=== PATIENT | female | born 1965 | race Caucasian/White ===

== ENCOUNTER 2020-01-15 09:08 | Outpatient (CLI) | payer OTHER, SELFPAY ==
--- NOTE | 2020-01-15 09:21 | MM_ITS ---
WS: [id number] SCREENING DIGITAL MAMMOGRAM WITH CAD HISTORY: SCREENING COMPARISON: 11/08/2018, 12/06/2018, 10/12/2017 and 07/08/2014 Bilateral CC and MLO views submitted. Computer aided detection analyzed. Breast composition: There are scattered areas of fibroglandular density. There is mild progression of the asymmetry in the 12:00 region of the RIGHT breast. Additional imaging was also obtained on the p rior screening mammogram of 11/08/2018. The changes are slightly more obvious and there is a new asymm etry. Recommend additional imaging LEFT breast is negative. MM/[place] [id number] IMPRESSION: BI-RADS: 0-Incomplete: Need additional imaging evaluation FOLLOW UP: Need Additional Imaging RIGHT breast: Spot compression views (CC and MLO). True ML. Ultrasound to follo w if abnormality persists.
== END 2020-01-15 09:09 | disposition home or self-care (01) ==
LOC: RADSHAW 09:13
PROVIDERS: PCP Nurse Practitioner; Visit Provider Nurse Practitioner
DX: Z12.31 Encounter for screening mammogram for malignant neoplasm of breast (principal); N64.89 Other specified disorders of breast
CPT/HCPCS: 77067

== ENCOUNTER 2020-02-13 10:23 | Outpatient (CLI) | payer OTHER, SELFPAY ==
--- NOTE | 2020-02-13 10:33 | MM_ITS ---
WS: [id number] Right breast diagnostic digital mammogram, 02/13/2020 Clinical Data: ABNORMAL MAMMOGRAM Comparison: 01/15/2020, 12/06/2018, 11/08/2018, 10/12/2017, 07/08/2014, 01/02/2014, 12/24/2013, 12/12/2012, 08/27/2011. Findings: Compression views and ML view of the right breast showed only normal breast tissue. The asymmetry in the 12:00 region of the right breast showed only normal breast tissue. No spiculated masses or cluste red calcifications are seen. There are no secondary signs of carcinoma. MM/[place] [id number] Impression: 1. Negative for right breast abnormality. 2. Recommend right breast ultrasound. BIRADS: 2-Benign FOLLOW UP: See Report The CAD inventory checker was used.
--- NOTE | 2020-02-13 10:33 | US_ITS ---
WS: [id number] Right breast ultrasound, 02/13/2020 Clinical Data: ABNORMAL MAMMOGRAM Comparison: Right breast ultrasound, 01/02/2014. Findings: Only normal breast tissue could be seen at the 11 to 1:00 position on the right breast. There were no cysts or masses. US/US breast RT limited* [id number] Impression: 1. Normal right breast ultrasound. 2. Recommend annual screening mammograms. BIRADS: 2-Benign FOLLOW UP: 1 Year Follow-up
== END 2020-02-13 10:24 | disposition home or self-care (01) ==
LOC: RADSHAW 10:28
PROVIDERS: PCP Nurse Practitioner; Visit Provider Nurse Practitioner
DX: R92.8 Other abnormal and inconclusive findings on diagnostic imaging of breast (principal)
CPT/HCPCS: 76642; 77065

== ENCOUNTER 2020-06-17 08:22 | Outpatient (CLI) | payer OTHER, SELFPAY ==
--- NOTE | 2020-06-17 08:30 | MR_ITS ---
WS: [id number] MRI LUMBAR SPINE NONCONTRAST TECHNIQUE: Sagittal T1, T2 and STIR imaging. Axial T1 and T2 imaging. CLINICAL INFORMATION: BACK PAIN W/RADICULOPATHY COMPARISON: None. FINDINGS: Small central protrusion the mid thoracic spine at T7-T8 with slight contact of the thoracic cord and mild central canal stenosis. Mild lumbar curve. No acute compression. Mild disc bulging L4-5. L1-L2: Normal. L2-L3: No significant disc bulging. Mild facet arthropathy. Spinal canal and foramen are patent. L3-L4: No significant disc bulging. Mild facet arthropathy. Spinal canal and foramen are patent. L4-L5: Slight anterolisthesis L4 on L5. Shallow annular bulging with slight effacement of the ventral thecal sac. Mild central canal stenosis. Slight impingement traversing L5 nerve roots right greater than left. Small annular fissure. Mild bilateral foraminal narrowing. L5-S1: Mild annular bulging. Tiny annular fissure. Mild right and no significant left foraminal narro wing. Mild to moderate facet arthropathy. Visualized pelvic bony structures: Normal. Paravertebral soft tissues: Normal. MR/MR lumbar spine wo con* [id number] IMPRESSION: 1. Small central protrusion the mid thoracic spine at T7-T8 with slight contac t of the thoracic cord and mild central canal stenosis. 2. Shallow annular bulging L4-5 with a small annular fissure and mild central canal stenosis. Slight impingement traversing L5 nerve roots. Mild bilateral fo raminal narrowing at this level. 3. Tiny right eccentric annular fissure L5-S1 with mild right L5-S1 foraminal narrowing. 4. Mild to moderate facet arthropathy L4-L5 and L5-S1.
== END 2020-06-17 08:23 | disposition home or self-care (01) ==
LOC: RADSHAW 08:23
PROVIDERS: PCP Nurse Practitioner; Visit Provider Surgery
DX: M54.16 Radiculopathy, lumbar region (principal); M47.816 Spondylosis without myelopathy or radiculopathy, lumbar region; M47.817 Spondylosis without myelopathy or radiculopathy, lumbosacral region; M51.24 Other intervertebral disc displacement, thoracic region
CPT/HCPCS: 72148

== ENCOUNTER 2020-08-25 09:19 | Outpatient (CLI) | payer OTHER, SELFPAY ==
--- NOTE | 2020-08-25 09:31 | XR_ITS ---
WS: [id number] Lumbar spine with flexion, extension, and neutral lateral, 08/25/2020 Clinical Data: LOW BACK PAIN Comparison: None. Findings: No compression fractures or subluxation is seen. No disc space narrowing is seen. No limitation of motion or subluxation is seen. There is minimal anterior spurring of the vertebral bodies L3-L5. XR/XR lumbar spine f/e only [id number] Impression: 1. Minimal anterior spurring at L3-L5. 2. Negative for limitation of motion or subluxation on flexion or extension.
== END 2020-08-25 09:20 | disposition home or self-care (01) ==
LOC: RAD 09:27
PROVIDERS: PCP Nurse Practitioner; Visit Provider Nurse Practitioner
DX: M54.5 Low back pain (principal)
CPT/HCPCS: 72120

== ENCOUNTER 2021-03-24 12:36 | Outpatient (CLI) | payer OTHER, SELFPAY ==
--- NOTE | 2021-03-24 13:10 | MM_ITS ---
WS: [id number] BILATERAL DIGITAL DIAGNOSTIC MAMMOGRAM MAMMOGRAPHY WITH CAD CLINICAL INFORMATION: LEFT BREAST PAIN COMPARISON: February 13, 2020 TECHNIQUE: Bilateral CC, MLO, and ML views. FINDINGS: Scattered fibroglandular densities bilaterally. Dense breast tissue upper outer right breast. This is persistent but improved compared to previous and also similar in appearance to multiple prior examin ations dating back to 2014. Right breast is otherwise unchanged in appearance. No suspicious parenchymal abnormalities in the left breast. Ultrasound is pending. ULTRASOUND BREAST BILATERAL TECHNIQUE: Ultrasound bilateral breast focused area of concern. CLINICAL INFORMATION: LEFT BREAST PAIN FINDINGS: Ultrasound right breast 12:00 position. Ultrasound left breast 12 to 3:00 position. No evidence of un derlying suspicious cystic or solid lesions. Normal underlying parenchymal breast tissue. No lesions to target for biopsy. MM/[place] [id number] IMPRESSION: BI-RADS: 2-Benign FOLLOW UP: 1 Year Follow-up Recommend return to annual screening mammography.
== END 2021-03-24 12:37 | disposition home or self-care (01) ==
PROVIDERS: PCP Nurse Practitioner; Visit Provider Nurse Practitioner
DX: N64.4 Mastodynia (principal)
CPT/HCPCS: 76642; 77066

== ENCOUNTER 2022-04-13 07:53 | Outpatient (CLI) | payer OTHER, SELFPAY ==
--- NOTE | 2022-04-13 08:01 | MM_ITS ---
WS: [id number] VIEWS: MLO and CC views both breasts. 3D digital tomosynthesis is also included in this exam. Comparison made with prior exam of 10/12/2017, 12/06/2018, 01/15/2020, 03/24/2021.. Findings: There was no sign of mass, architectural distortion or suspicious calcification in either breast. Sc attered fibroglandular densities MM/[place] [id number] Impression: BI-RADS: 2-Benign FOLLOW-UP: 1 Year Follow-up This mammogram was also analyzed by the Computer Aided Detection System R2 Imag e [employer].
== END 2022-04-13 07:54 | disposition home or self-care (01) ==
PROVIDERS: PCP Nurse Practitioner; Visit Provider Nurse Practitioner
DX: Z12.31 Encounter for screening mammogram for malignant neoplasm of breast (principal)
CPT/HCPCS: 77063; 77067

== ENCOUNTER 2023-05-24 10:06 | Outpatient (CLI) | payer OTHER, SELFPAY ==
--- NOTE | 2023-05-24 10:24 | MM_ITS ---
WS: [id number] BILATERAL 3D TOMOSYNTHESIS DIGITAL DIAGNOSTIC MAMMOGRAPHY WITH CAD CLINICAL INFORMATION: LT BR PAIN HISTORY: LEFT breast pain COMPARISON: 2021 TECHNIQUE: Bilateral CC, MLO, and ML views. FINDINGS: Scattered fibroglandular densities bilaterally. Palpable marker upper outer LEFT breast. Ultrasound o f this area is pending. A few incidental punctate calcifications. No suspicious focal mass, asymmetry, calcifications, or architectural distortion. ULTRASOUND BREAST LEFT TECHNIQUE: Ultrasound left breast focused area of concern. CLINICAL INFORMATION: LT BR PAIN FINDINGS: Ultrasound LEFT breast area of concern upper outer quadrant. Normal underlying parenchymal tissue. No cystic or solid lesions. No suspicious findings. MM/[place] [id number] BI-RADS: 2-Benign FOLLOW UP: 1 Year Follow-up Recommend return to annual screening mammography.
== END 2023-05-24 10:07 | disposition home or self-care (01) ==
LOC: RAD 10:07
PROVIDERS: PCP Nurse Practitioner; Visit Provider Nurse Practitioner
DX: N64.4 Mastodynia (principal)
CPT/HCPCS: 77062; G0279

== ENCOUNTER 2023-05-31 08:03 | Outpatient (CLI) | payer OTHER, SELFPAY ==
--- NOTE | 2023-05-31 08:13 | US_ITS ---
WS: [id number] BILATERAL 3D TOMOSYNTHESIS DIGITAL DIAGNOSTIC MAMMOGRAPHY WITH CAD CLINICAL INFORMATION: LT BR PAIN HISTORY: LEFT breast pain COMPARISON: 2021 TECHNIQUE: Bilateral CC, MLO, and ML views. FINDINGS: Scattered fibroglandular densities bilaterally. Palpable marker upper outer LEFT breast. Ultrasound o f this area is pending. A few incidental punctate calcifications. No suspicious focal mass, asymmetry, calcifications, or architectural distortion. ULTRASOUND BREAST LEFT TECHNIQUE: Ultrasound left breast focused area of concern. CLINICAL INFORMATION: LT BR PAIN FINDINGS: Ultrasound LEFT breast area of concern upper outer quadrant. Normal underlying parenchymal tissue. No cystic or solid lesions. No suspicious findings. US/US breast LT limited* [id number] BI-RADS: 2-Benign FOLLOW UP: 1 Year Follow-up Recommend return to annual screening mammography.
== END 2023-05-31 08:04 | disposition home or self-care (01) ==
LOC: RAD 08:03
PROVIDERS: PCP Nurse Practitioner; Visit Provider Nurse Practitioner
DX: N64.4 Mastodynia (principal); R92.323 Mammographic fibroglandular density, bilateral breasts
CPT/HCPCS: 76642

== ENCOUNTER 2024-06-03 08:48 | Outpatient (CLI) | payer OTHER, SELFPAY ==
--- NOTE | 2024-06-03 08:49 | MM_ITS ---
WS: [id number] BILATERAL 3D TOMOSYNTHESIS DIGITAL SCREENING MAMMOGRAPHY WITH CAD CLINICAL INFORMATION: SCREENING HISTORY: Screening mammogram. No current complaints. COMPARISON: 2023 TECHNIQUE: Bilateral CC and MLO views. FINDINGS: Scattered fibroglandular densities bilaterally. No suspicious focal mass, asymmetry, calcifications, or architectural distortion. No evidence of malignancy. Incidental punctate calcifications RIGHT breast. MM/MM scr tomosynthesis [id number] IMPRESSION: DENSITY: There are scattered areas of fibroglandular density. BI-RADS: 2 - Benign. FOLLOW UP: 1 Year Follow-up Recommend return to annual screening mammography.
== END 2024-06-03 08:49 | disposition home or self-care (01) ==
LOC: RAD 08:49
PROVIDERS: PCP Nurse Practitioner; Visit Provider Nurse Practitioner
DX: Z12.31 Encounter for screening mammogram for malignant neoplasm of breast (principal); Z12.11 Encounter for screening for malignant neoplasm of colon; R92.323 Mammographic fibroglandular density, bilateral breasts; R92.1 Mammographic calcification found on diagnostic imaging of breast; K21.9 Gastro-esophageal reflux disease without esophagitis; R10.9 Unspecified abdominal pain
CPT/HCPCS: 77063; 77067; 99204

== ENCOUNTER 2024-07-18 14:54 | Outpatient (CLI) | payer OTHER, SELFPAY ==
--- NOTE | 2024-07-18 14:56 | CT_ITS ---
WS: [id number] CT HEAD TECHNIQUE: Noncontrast and contrast-enhanced CT of the head. CLINICAL INFORMATION: NEW ONSET MIGRAINES LEFT SIDE COMPARISON: None. DLP: 1995.[address] scans at [facility] use at least one of these dose optimization techniques: automated exposure control; mA and/or kV adjustment per patient size (includes targeted exams where dose is matched to clinical indication); or iterative reconstruction. FINDINGS: No evidence of intracranial hemorrhage or mass effect. Ventricular system and basal cisterns are patent. No hydrocephalus. Incidental slightly low-lying cerebellar tonsils. No abnormal intracranial enhancement. Paranasal sinuses and mastoid air cells are well aerated. No other suspicious findings. CT/CT head wo/w con [id number] IMPRESSION: 1. No evidence of intracranial hemorrhage or mass effect. 2. No abnormal intracranial enhancement. 3. Incidental slightly low-lying cerebellar tonsils. 4. No acute intracranial findings.
[2024-07-18] MEDS: iohexol 350 mg/mL 500 mL Btl (per mL) IV (15:50)
== END 2024-07-18 14:55 | disposition home or self-care (01) ==
PROVIDERS: PCP Nurse Practitioner; Visit Provider Nurse Practitioner
DX: Z01.89 Encounter for other specified special examinations (principal)
CPT/HCPCS: 70470

== ENCOUNTER 2024-08-21 08:39 | Day surgery (SDC) | payer OTHER, SELFPAY ==
[2024-08-21 09:00] VITALS: BP 100/74; PULSE 74; RESP 16; TEMP 36.4; O2SAT 98
[2024-08-21] MEDS: sodium chloride 0.9% 1,000 ML 15 ML IV (09:12)
--- NOTE | 2024-08-21 09:13 | W.PM.OPSFHP ---
Same Day Surgery H&P Indication for Procedure/HPI DATE OF PROCEDURE: August 21, 2024 CHIEF COMPLAINT/INDICATIONFOR SURGICAL PROCEDURE: need for screening colonoscopy and epigastric abdominal pain PREOP DIAGNOSIS: need for screening colonoscopy PLANNED PROCEDURE: Operation Date: 08/21/24 10:20 Proposed Procedures p EGD [id number] G0121 Z12.11 K21.9(Not Applicable) - Shane Patrick MD s Colonoscopy(Not Applicable) - Shane Patrick MD Medications/Allergies* Home Medications ?Medication ?Instructions ?Recorded ?Confirmed ?Type levothyroxine 100 mcg capsule 100 mcg PO DAILY 07/10/19 08/21/24 History hydrocodone 10 mg-acetaminophen 1 tab PO Q6H PRN Pain 08/18/24 08/21/24 History 325 mg tablet cholecalciferol (vitamin D3) 50 50 mcg PO DAILY 08/20/24 08/21/24 History mcg (2,000 unit) capsule rosuvastatin 10 mg tablet 10 mg PO DAILY 08/20/24 08/21/24 History Allergies/Adverse Reactions Allergy/AdvReac Type Severity Reaction Status Date / Time No Known Allergies Allergy Verified 08/18/24 09:28 Current Medications: Generic Name Dose Route Start Last Admin Trade Name Freq PRN Reason Stop Dose Admin Sodium Chloride 1,000 mls @ 15 mls/hr 08/21/24 08:48 08/21/24 09:12 Sodium Chloride 0.9% IV 08/22/24 08:47 15 mls/hr .Q24H PRN Administration COLONOSCOPY FLUIDS Pertinent History/Comorbid Conditions* Medical History (Updated 07/07/20 @ 10:14 by Lavelle Palma DPM) Hypothyroidism Surgical History (Updated 07/14/19 @ 22:48 by Lavelle Palma DPM) Hx of appendectomy Previous section Family History (Updated 07/10/19 @ 13:47 by Katelynn Garrison RN) Diabetes Father CAD (coronary artery disease) Father Social History Smoking and tobacco/nicotine status: current every day tobacco/nicotine user Alcohol intake: current Alcohol intake frequency: holidays/special occasions only Substance/Drug Use: former Date of last use: 15+ years ago Current occupational status: employed Current occupation: [employer] Pertinent Exam Findings alert, oriented x 3, regular rate & rhythm and operative site marked Recommendations Surgery/Procedure today Coding Level of Care Code Acute Code for Chg Fwd
--- NOTE | 2024-08-21 09:26 | ANES.PREANE2 ---
Pre-Anesthetic Assessment Height/Weight: Height 1.63 m Temp Pulse Resp BP Pulse Ox O2 Del Method 97.6 F 74 16 100/74 98 Room Air 08/21/24 09:00 08/21/24 09:00 08/21/24 09:00 08/21/24 09:00 08/21/24 09:00 08/21/24 09:00 Preop Diagnosis: need for screening colonoscopy Operation Date: 08/21/24 10:20 Proposed Procedures p EGD [id number] G0121 Z12.11 K21.9(Not Applicable) - Shane Patrick MD s Colonoscopy(Not Applicable) - Shane Patrick MD Was Beta Marielena taken within 24 hours: N/A Was Clonidine taken within 24 hours: N/A Last intake: Intake Last Liquid Date 08/20/24 Last Liquid Time 22:00 Last Solid Date 08/19/24 Last Solid Time 21:00 Social Tobacco 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 Exam alert, oriented x 3, clear to auscultation bilaterally and regular rate & rhythm Airway Submandibular: within normal limits Cervical ROM: within normal limits Mallampati: Class II Dentition: false Comments: Comments: 6 teeth on bottom intact History/ROS No significant history except as noted and No significant complaints Pulmonary Cough CV/HEM None reported None reported Hepatic Hepatitis GI Gastroesophageal Reflux Disease Metabolic Thyroid Disease [facility] [place]/[facility] None reported Neuropsych None reported Anesthetic Plan ASA status: 3 Anesthesia: Anesthesia Evaluation Risk of > 500 ml blood loss (7ml/kg in children): No Medications/Allergies Home Medications ?Medication ?Instructions ?Recorded ?Confirmed ?Last Taken ?Type levothyroxine 100 mcg capsule 100 mcg PO DAILY 07/10/19 08/21/24 08/20/24 History order custom molded funcitional #1 ea 07/08/20 08/21/24 08/20/24 Rx orthotic with extra with (tennis shoes) hydrocodone 10 mg-acetaminophen 1 tab PO Q6H PRN Pain 08/18/24 08/21/24 08/20/24 History 325 mg tablet cholecalciferol (vitamin D3) 50 50 mcg PO DAILY 08/20/24 08/21/24 08/20/24 History mcg (2,000 unit) capsule rosuvastatin 10 mg tablet 10 mg PO DAILY 08/20/24 08/21/24 08/20/24 History Allergies Allergy/AdvReac Type Severity Reaction Status Date / Time No Known Allergies Allergy Verified 08/18/24 09:28 Current Medications Generic Name Dose Route Start Last Admin Trade Name Heena PRN Reason Stop Dose Admin Sodium Chloride 1,000 mls @ 15 mls/hr 08/21/24 08:48 08/21/24 09:12 Sodium Chloride 0.9% IV 08/22/24 08:47 15 mls/hr .Q24H PRN Administration COLONOSCOPY FLUIDS PFSH Anesthesia Medical History Hypothyroidism Surgical History Hx of appendectomy Previous section Family History Father Diabetes CAD (coronary artery disease) Social History Smoking and tobacco/nicotine status: current every day tobacco/nicotine user Alcohol intake: current Alcohol intake frequency: holidays/special occasions only Substance/Drug Use: former Date of last use: 15+ years ago Current occupational status: employed Current occupation: [employer]
[2024-08-21 10:12] VITALS: BP 144/66; PULSE 64; RESP 20; TEMP 36.3; O2SAT 98
[2024-08-21 10:35] VITALS: BP 119/60; PULSE 60; RESP 17; O2SAT 100
--- NOTE | 2024-08-21 10:45 | ANE.PACU2 ---
Inpatient post-anesthesia follow up: Airway intact: Yes Vital signs: Temperature 97.4 F Pulse Rate 60 Respiratory Rate 17 Blood Pressure 119/60 Pulse Oximetry 100 Oxygen Delivery Me thod Room Air Oxygen Flow Rate 4 Fraction of Inspir ed Oxygen Hydration adequate: Yes Nausea and vomiting: No Pain level: 1 Mental status: Baseline
== END 2024-08-21 10:45 | disposition home or self-care (01) ==
PROVIDERS: PCP Nurse Practitioner; Visit Provider Surgery
PROC: 0DJ08ZZ Inspection of Upper Intestinal Tract, Via Natural or Artificial Opening Endoscopic (ICD-10-PCS; principal; 2024-08-21 10:20)
PROC: 0DJD8ZZ Inspection of Lower Intestinal Tract, Via Natural or Artificial Opening Endoscopic (ICD-10-PCS; CPT 45378; 2024-08-21 10:20)
DX: Z12.11 Encounter for screening for malignant neoplasm of colon (principal); K21.00 Gastro-esophageal reflux disease with esophagitis, without bleeding; E03.9 Hypothyroidism, unspecified; K29.80 Duodenitis without bleeding; K29.00 Acute gastritis without bleeding; K29.50 Unspecified chronic gastritis without bleeding; F17.200 Nicotine dependence, unspecified, uncomplicated; Z79.890 Hormone replacement therapy; Z79.899 Other long term (current) drug therapy
CPT/HCPCS: 43239; 45378; 83630; 83993; 87177; 87209; 88305; 88342; J2704; J7030

== ENCOUNTER 2024-09-04 08:13 | Outpatient (CLI) | payer OTHER, SELFPAY ==
--- NOTE | 2024-09-04 08:19 | MR_ITS ---
WS: [id number] MRI CERVICAL SPINE NONCONTRAST TECHNIQUE: Sagittal T1, T2 and STIR imaging. Axial T2, gradient, and fiesta imaging. CLINICAL INFORMATION: CERVICALGIA COMPARISON: None. FINDINGS: Straightening of the normal cervical lordosis. Disc bulging throughout the cervical spine. Cord signal is normal. Disc narrowing worse at C5-C6 and C6-C7. C2-C3: Moderate facet arthropathy. C3-C4: Disc osteophyte protrusion with indentation on the RIGHT ventral cervical cord. Moderate central canal stenosis. Moderate to severe RIGHT foraminal narrowing. Moderate to severe RIGHT facet arthropathy. C4-C5: Central disc osteophyte protrusion with indentation on the cervical cord. Mild facet arthropathy. Mild central canal stenosis. Moderate RIGHT foraminal narrowing. C5-C6: Disc osteophyte complex with mild central canal stenosis. Moderate LEFT and mild RIGHT foraminal narrowing. Mild facet arthropathy. C6-C7: Disc osteophyte complex with mild central canal stenosis. Moderate RIGHT and mild LEFT foraminal narrowing. C7-T1: Tiny central disc protrusion. Spinal canal and foramen are patent. Visualized brain stem structures: Normal. Prevertebral soft tissues: Normal. MR/MR cervical spin wo con* [id number] IMPRESSION: 1. Moderate central canal stenosis C3-C4 with a RIGHT paracentral disc osteoph yte protrusion and indentation on the RIGHT ventral cervical cord 2. Mild central canal stenosis C4-C5 C5-C6 and C6-C7 with small disc osteophyt e protrusions and slight indentation cervical cord. 3. Moderate to severe RIGHT C3-4 bony foraminal narrowing. Advanced RIGHT C3-4 facet arthropathy. 4. Moderate RIGHT C6-7 bony foraminal narrowing
== END 2024-09-04 08:14 | disposition home or self-care (01) ==
PROVIDERS: PCP Nurse Practitioner; Visit Provider Anesthesiology Pain Medicine
DX: M48.02 Spinal stenosis, cervical region (principal); M25.78 Osteophyte, vertebrae; M50.21 Other cervical disc displacement, high cervical region; M50.221 Other cervical disc displacement at C4-C5 level; M50.222 Other cervical disc displacement at C5-C6 level; M50.223 Other cervical disc displacement at C6-C7 level; M47.892 Other spondylosis, cervical region; R93.7 Abnormal findings on diagnostic imaging of other parts of musculoskeletal system; M50.322 Other cervical disc degeneration at C5-C6 level; M50.323 Other cervical disc degeneration at C6-C7 level
CPT/HCPCS: 72141

== ENCOUNTER → 2024-09-09 13:35 | Outpatient (BNVA) | payer OTHER, SELFPAY | PROVIDERS: PCP Nurse Practitioner; Visit Provider Surgery | DX: K21.00 Gastro-esophageal reflux disease with esophagitis, without bleeding (principal) | CPT/HCPCS: 99213 ==